=== PATIENT | female | born 1975 | race Caucasian/White ===

== ENCOUNTER 2016-07-17 07:00 | Inpatient (IN) | payer OTHER ==
[~2016-07-17 07:00] MED LIST: DEXTROSE 5%-LACTATED RINGERS 1,000 ML IV SCH
[2016-07-17 08:14] VITALS: BMI 28.7
[2016-07-17 08:53] LABS: BASOPHIL 0.9 % (0-2.0); EOSINOPHIL 2.1 % (0-4.5); MCH 31.9 pg (25.7-33.7); MEAN CELL VOLUME 93.6 fl (80-96); MEAN PLT VOLUME 8.5 fl (7.5-11.1); PLATELET COUNT 221 K/MM3 (134-434); WHITE BLOOD COUNT 7.3 K/mm3 (4.0-10.0)
[2016-07-17 09:16] LABS: CALCIUM 8.9 mg/dL (8.5-10.1); CREATININE 0.9 mg/dL (0.55-1.02)
[2016-07-17 09:23] LABS: INR 0.95 (0.82-1.09); PROTHROMBIN TIME (PATIENT) 10.4 SEC (9.98-11.88)
[2016-07-17 09:26] LABS: ACTIVATED PTT 28.6 SECONDS (26.9-34.4)
[2016-07-17] MEDS ORDERED: AMPICILLIN - 2 GM in SODIUM CHLORIDE 100 ML IVPB ONE (09:42)
[2016-07-17] MEDS ORDERED: AMPICILLIN - 1 GM in SODIUM CHLORIDE 100 ML IVPB SCH (09:45)
[2016-07-17] MEDS ORDERED: DEXTROSE 5%-LACTATED RINGERS 1,000 ML IV SCH (09:45)
[2016-07-17] MEDS ORDERED: OXYTOCIN 15 UNITS/ LR 250 ML 250 ML IVPB SCH (09:45)
--- NOTE | 2016-07-17 09:50 | HP ---
Past Medical History - Primary Care Physician PCP:: Ambrosio Baez - Admission Chief Complaint: 41 yo P2 with at EGA 40w 2d admitted for labor induction. Patient is noted to be ninoska on admission. History of Present Illness: complicated by AMA, prior h/o labor. 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: No: Alzheimer's, CVA, Dementia, Migraine, Multiple Sclerosis, Peripheral Neuropathy, Parkinson's, Seizure, Syncope, TIA, Vertigo, Other Cardiovascular: No: AFIB, Aneurysm, Aortic Insufficiency, Aortic Stenosis, CAD, CHF, Deep Vein Thrombosis, HTN, Hyperlipdemia, [place], Mitral Insufficiency, Mitral Stenosis, Murmur, Pulmonary Hypertension, Other Pulmonary: No: Asthma, Bronchitis, Cancer, COPD, O2 Dependent, Pneumonia, Previously Intubated, Pulmonary Embolus, Pulmonary Fibrosis, Sleep Apnea, Other Gastrointestinal: No: Ascites, Cancer, Constipation, Crohn's Disease, Diverticulitis, Diverticulosis, Esophageal Varices, Gastritis, GERD, GI Bleed, Hemorrhoids, Hiatal Hernia, Inflamatory Bowel Disease, Irritable Bowel Disease, Pancreatitis, Peptic Ulcer Disease, Ulcerative Colitis, Other Hepatobiliary: No: Cirrhosis, Cholelithiasis, Cholecystitis, Choledocholithiasis , Hepatitis A, Hepatitis B, Hepatitis C, Other Renal/: No: Renal Failure, Renal Inusuff, BPH, Cancer, Hematuria, Hemodialysis , Neurogenic Bladder, Renal Calculi, UTI, Other Reproductive: No: Ectopic , Endometriosis, Fibroids, PID, Polycystic Ovary Syndrome, Postmenopausal, Other ...: 5 ...Para: 2 ...Term: 0 ...: 2 ...Spon : 1 ...Induced : 1 ...Multiple Gestation: 0 ...LMP: 10/01/15 ... Weeks Gestation by Dates: 41.3 ...EDC by Dates: 07/07/16 ...EDC by Sono: 07/15/16 Heme/Onc: No: Anemia, B12 Deficiency, Bleeding Disorder, Cancer, Current Chemotherapy, Current Radiation Therapy, Hemochromatosis, Hypercoaguable State, Myeloproliferative Synd, Sickle Cell Disease, Sickle Cell Trait, Thrombocytopenia, Other Infectious Disease: No: AIDS, C-Diff, Herpes Zoster, HIV, MRSA, STD's, Tuberculosis, VREF, Other Psych: No: Addictions, Anxiety, Bipolar, Depression, Panic, Psychosis, Schizophrenia, Other Musculoskeletal: No: Bursitis, Chronic low back pain, Hemiparesis, Hemiplegia, Osteoarthritis, Paraplegia, Other Rheumatology: No: Fibromyalgia, Gout, Lupus, Rheumatoid Arthritis, Sarcoidosis, Vasculitis, Other ENT: No: Allergic Rhinitis, Sinusitis, Other Endocrine: No: Lehigh's Disease, Frandy's Disease, Diabetes Insipidus, Diabetes Mellitus, Hyperparathyroidism, Hyperthyroidism, Hypothyroidism, Osteopenia, SIADH, Other Dermatology: No: Basal Cell, Cellulitis, Eczema, Melanoma, Psoriasis, Squamous Cell, Other - Past Surgical History Past Surgical History: Yes: None Hx Myomectomy: No Hx Transabdominal Cerclage: No - Smoking History Smoking history: Never smoked Have you smoked in the past 12 months: No - Alcohol/Substance Use Hx Alcohol Use: No History of Substance Use: reports: None - Social History Usual Living Arrangement: Yes: With Significant Other, With Child ADL: Independent 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 - Review of Systems Constitutional: reports: No Symptoms Eyes: reports: No Symptoms HENT: reports: No Symptoms Neck: reports: No Symptoms Cardiovascular: reports: No Symptoms Respiratory: reports: No Symptoms Gastrointestinal: reports: No Symptoms Genitourinary: reports: No Symptoms Breasts: reports: No Symptoms Reported Musculoskeletal: reports: No Symptoms Integumentary: reports: No Symptoms Neurological: reports: No Symptoms Endocrine: reports: No Symptoms Hematology/Lymphatic: reports: No Symptoms Psychiatric: reports: No Symptoms Pain Intensity: 3 Physical Exam - Maternity Vital Signs: Vital Signs Temperature 97.8 F 07/17/16 08:00 Pulse Rate 83 07/17/16 08:00 Respiratory Rate 18 07/17/16 09:00 Blood Pressure 105/71 07/17/16 09:00 O2 Sat by Pulse Oximetry (%) Constitutional: Yes: Well Nourished, No Distress, Calm Eyes: Yes: WNL, Conjunctiva Clear HENT: Yes: WNL, Atraumatic, Normocephalic Neck: Yes: WNL, Supple, Trachea Midline Cardiovascular: Yes: WNL, Regular Rate and Rhythm Lungs: Clear to auscultation, Normal air movement - Abdominal Exam/OB Fundal Height: 40 Number of Fetuses: Single Presentation: Vertex Contractions: Yes Regularity: Irregular (q2-4min) Intensity: Mild (most ctx's are not fetl by the patient) Monitor Mode: External Heart Rate (range): 125 Heart Rate Location: Midline Category: I Accelerations: Non-Uniform Decelerations: None - Vaginal Exam/OB Vaginal Bleediing: No Speculum Exam: No Dilatation (cm): 2 Effacement (%): 50 Amniotic Membrane Status: Intact Presentation: Vertex/Position Station: -4 (Adequate gynecoid pelvimetry) - Physical Exam Musculoskeletal: Yes: WNL Extremities: Yes: WNL Edema: Yes Edema: LLE: Trace, RLE: Trace Integumentary: Yes: WNL Deep Tendon Reflex Grade: Normal +2 ...Motor Strength: WNL Psychiatric: Yes: WNL, Alert, Oriented - Labs Lab Results: CBC, BMP 07/17/16 08:25 07/17/16 08:25 Hemorrhage Risk Assessment - Risk Factors Medium Risk Factors: Yes: None High Risk Factors: Yes: None Risk Score: 1 Risk Level: Medium Risk Imaging - Results Ultrasound: Report Reviewed Assessment/Plan 41 yo P2 with at EGA 40w 2d admitted for labor induction. Patient is noted to be ninoska on admission but the contractions are irregular and ot strong. The cervical examination is the same as it was in-office 1 week ago. FHT is category I. Fetus requires no intervention. Mother is stable and well. Cervical exam is favorable. We had a long discussion about management options and risks/benefits. The patient prefers to augment contractions with oxytocin. The risks of infection, bleeding, uterine tachysystole, distress, shoulder dystocia, hemorrhage, etc. were explained. The patient verbalized her understanding and requested to proceed with IV pitocin. Plan to use IV abx for GBS prophylaxis.
[2016-07-17] MEDS ORDERED: TUBERCULIN PPD 5 TU/0.1ML SYRINGE (IN PATIENT USE ONLY) ID ONE (10:00)
[2016-07-17 11:08] LABS: HIV 1 & 2 AB NEGATIVE; HIV 1 AGp24 NEGATIVE
[2016-07-17] MEDS ORDERED: PROMETHAZINE HCL 25 MG/1 ML VIAL IVPB ONE (12:00)
[2016-07-17] MEDS ORDERED: BUTORPHANOL TARTRATE 1 MG/ML VIAL IVPB ONE (12:00)
[2016-07-17] MEDS ORDERED: ELECTROLYTE-148 SOLN 1,000 ML IV SCH (13:40)
[2016-07-17] MEDS: AMPICILLIN - 100 ML IVPB SCH ×2 (13:58→18:21)
--- NOTE | 2016-07-17 15:10 | PN ---
Ante-Partal Exam - Subjective Subjective: C/o painful contractions, s/p Stadol/Phenergan. Pt requested epidural. Ptocin at 1mU/min Vital Signs: Vital Signs Temperature 97.6 F 07/17/16 14:00 Pulse Rate 63 07/17/16 13:17 Respiratory Rate 18 07/17/16 13:17 Blood Pressure 121/81 07/17/16 13:17 O2 Sat by Pulse Oximetry (%) Bleeding: No Headache: No Visual changes: No Right upper quadrant pain: No Pain (scale 1-10): 9 - Contractions Contractions: Yes (q4-5min) Regularity: Regular Intensity: Moderate Monitor Mode: External - Exam during Labor Heart Rate: 125 Variability: Moderate Heart Rate Location: Midline Monitor Accelerations: Present Monitor Decelerations: None - Intrapartum Hemorrhage Risk Medium Risk Factors: None Risk Score: 0 Risk Level: Low Risk - Assessment/Plan Assessment/Plan: 41 yp P2 with post term . Patient is now with latent labor. Fetus has Category I tracing. Anesthesia at bedside for epidural.
[2016-07-17] MEDS ORDERED: FENTANYL/BUPIVACAINE/NS/PF - PCEA - 50 ML DISP.SYRIN EP SCH (15:45)
[2016-07-17 19:47] LABS: ARTERIAL BLD GAS O2 SATURATION 21.9 % (90-98.9); ARTERIAL BLOOD GAS BASE EXCESS -8.1 meq/l (-2-2); ARTERIAL BLOOD GAS HCO3 21.4 meq/L (22-26); ARTERIAL BLOOD GAS PO2 16.6 mmHg (80-100)
[2016-07-17 19:48] LABS: LPM/O2% ARTERIAL SAMPLE; PT. ON O2? CORD BLOOD SAMPLE
[2016-07-17 19:51] LABS: ARTERIAL BLD GAS O2 SATURATION 51.8 % (90-98.9); ARTERIAL BLOOD GAS BASE EXCESS -7.3 meq/l (-2-2); ARTERIAL BLOOD GAS HCO3 19.2 meq/L (22-26); ARTERIAL BLOOD GAS PO2 26.3 mmHg (80-100)
[2016-07-17 19:52] LABS: ARTERIAL BLOOD GAS pH 7.19 (7.35-7.45)
[2016-07-17 19:53] LABS: PT. ON O2? CORD BLOOD
[2016-07-17 19:54] LABS: ARTERIAL BLOOD GAS pH 7.27 (7.35-7.45); LPM/O2% VENOUS SAMPLE
[2016-07-17] MEDS ORDERED: METHYLERGONOVINE MALEATE 0.2 MG/1 ML AMP IM PRN (21:16)
[2016-07-17] MEDS ORDERED: ACETAMINOPHEN 325 MG TABLET (FP) PO PRN (21:16)
[2016-07-17] MEDS ORDERED: WITCH HAZEL 50% (TUCKS) 40 PAD/JAR PAD TP PRN (21:16)
[2016-07-17] MEDS ORDERED: BISACODYL 10 MG SUPP.RECT RC PRN (21:16)
[2016-07-17] MEDS ORDERED: BENZOCAINE 28 GM HEMORRHOIDAL OINTMENT TP PRN (21:16)
[2016-07-17] MEDS ORDERED: BENZOCAINE 20% 57 GM BOTTLE TP PRN (21:16)
--- NOTE | 2016-07-17 21:19 | PN ---
Delivery - Delivery Vaginal Delivery: No Problems, Spontaneous Type of Anesthesia: Epidural Episiotomy/Laceration: Perineal Extension/lac, 1st degree EBL (cc): 300 Delivery, Single - Stages of Labor Date 1st Stage Initiatied: 07/17/16 Time 1st Stage Initiated: 11:00 Date 2nd Stage Initiated: 07/17/16 Time 2nd Stage Initiated: 18:55 Date of Delivery: 07/17/16 Time of Delivery: 19:27 Date Placenta Delivered: 07/17/16 Time Placenta Delivered: 19:30 Placenta: Yes: Spontaneous, Normal Configuration - Condition of Law Writer/Body And Frame Man Present: Yes Name: Kate Pike Gender: Male Weight: 3.515 kg Position: Left, OA Total Hours ROM (Hrs/Mins): 1h15m - 1 Minute Total Score: 9 5 Minutes Total Score: 9 - Feeding Plan Initial Plan: Elected not to breastfeed exclusively throughout hospitalization Remarks - Remarks Remarks: Normal labor and delivery
[2016-07-17] MEDS ORDERED: D5W-LR W/ 20 UNITS OXYTOCIN 1,000 ML IV SCH (21:30)
[2016-07-18] MEDS: IBUPROFEN 600 MG TABLET (FP) PO PRN ×2 (03:35→17:05)
[2016-07-18 08:23] LABS: BASOPHIL 0.5 % (0-2.0); EOSINOPHIL 1.4 % (0-4.5); MCHC 33.8 g/dl (32.0-36.0); MEAN CELL VOLUME 94.5 fl (80-96); MEAN PLT VOLUME 8.6 fl (7.5-11.1); NEUTROPHILS 74.1 % (42.8-82.8); PLATELET COUNT 188 K/MM3 (134-434); WHITE BLOOD COUNT 11.2 K/mm3 (4.0-10.0)
[2016-07-18] MEDS: PRENATAL VITAMINS W/ FOLIC ACID TABLET (FP) PO SCH (10:19)
--- NOTE | 2016-07-18 18:49 | PN ---
Post Progress Note - Subjective Subjective: No complaints Post Day: 2 Type of Delivery: Vital Signs: Vital Signs Temperature 98.3 F 07/18/16 09:00 Pulse Rate 75 07/18/16 09:00 Respiratory Rate 20 07/18/16 09:00 Blood Pressure 103/52 07/18/16 09:00 O2 Sat by Pulse Oximetry (%) 100 07/17/16 19:16 Breast Exam: Yes: Soft Uterus: Yes: Fundus Firm, Fundus below umbilicus Abdomen/GI: Yes: Abdomen soft, Passing flatus, Tolerating PO Lochia: Yes: Rubra Lochia, amount: Small Extremities: Yes: Calves non-tender Perineum: Yes: Intact Activity: Ambulating - Labs Labs: CBC WBC 11.2 K/mm3 (4.0-10.0) H D 07/18/16 07:20 RBC 3.38 M/mm3 (3.60-5.2) L 07/18/16 07:20 Hgb 10.8 GM/dL (10.7-15.3) D 07/18/16 07:20 Hct 31.9 % (32.4-45.2) L 07/18/16 07:20 MCV 94.5 fl (80-96) 07/18/16 07:20 MCHC 33.8 g/dl (32.0-36.0) 07/18/16 07:20 RDW 13.0 % (11.6-15.6) 07/18/16 07:20 Plt Count 188 K/MM3 (134-434) 07/18/16 07:20 MPV 8.6 fl (7.5-11.1) 07/18/16 07:20 Neutrophils % 74.1 % (42.8-82.8) 07/18/16 07:20 Lymphocytes % 19.0 % (8-40) D 07/18/16 07:20 Monocytes % 5.0 % (3.8-10.2) 07/18/16 07:20 Eosinophils % 1.4 % (0-4.5) 07/18/16 07:20 Basophils % 0.5 % (0-2.0) 07/18/16 07:20 Problem List - Problems (1) Normal vaginal delivery Assessment/Plan: 30yo P3 s/p , doing well stable, afebrile. care instructions reviewed. Continue routine care. Ambulation encouraged Discharge instruction reviewed. Code(s): O80 - ENCOUNTER FOR FULL-TERM UNCOMPLICATED DELIVERY
--- NOTE | 2016-07-18 18:52 | DS ---
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: Vital Signs Temperature 98.3 F 07/18/16 09:00 Pulse Rate 75 07/18/16 09:00 Respiratory Rate 20 07/18/16 09:00 Blood Pressure 103/52 07/18/16 09:00 O2 Sat by Pulse Oximetry (%) 100 07/17/16 19:16 Constitutional: Yes: Well Nourished, No Distress, Calm Eyes: Yes: WNL, Conjunctiva Clear, EOM Intact HENT: Yes: WNL, Atraumatic, Normocephalic Neck: Yes: WNL, Supple, Trachea Midline Cardiovascular: Yes: WNL, Regular Rate and Rhythm Respiratory: Yes: WNL, Regular, CTA Bilaterally Gastrointestinal: Yes: WNL, Normal Bowel Sounds, Soft ...Rectal Exam: Yes: Hemorrhoids/External Renal/: Yes: WNL ....Post : Yes: Uterus firm, Uterus non-tender, Slight lochia rubra Breast(s): Yes: WNL Musculoskeletal: Yes: WNL Extremities: Yes: WNL Edema: Yes Edema: LLE: Trace, RLE: Trace Integumentary: Yes: WNL Neurological: Yes: WNL, Alert, Oriented ...Motor Strength: WNL Psychiatric: Yes: WNL, Alert, Oriented Labs: CBC, BMP 07/18/16 07:20 07/17/16 08:25 Delivery - Delivery Vaginal Delivery: No Problems, Spontaneous Type of Anesthesia: Epidural Episiotomy/Laceration: Perineal Extension/lac, 1st degree EBL (cc): 300 Delivery, Single - Stages of Labor Date 1st Stage Initiatied: 07/17/16 Time 1st Stage Initiated: 11:00 Date 2nd Stage Initiated: 07/17/16 Time 2nd Stage Initiated: 18:55 Date of Delivery: 07/17/16 Time of Delivery: 19:27 Time Placenta Delivered: 19:30 Placenta: Yes: Spontaneous, Normal Configuration - Condition of Infant Orthopedic Nurse Practitioner/Internal Grinder Set Up Operator Present: Yes Name: Kate Pike Infant Gender: Male Weight: 3.515 kg Position: Left, OA Total Hours ROM (Hrs/Mins): 1h15m - 1 Minute Total Score: 9 5 Minutes Total Score: 9 - Feeding Plan Initial Plan: Elected not to breastfeed exclusively throughout hospitalization Remarks - Remarks Remarks: Normal labor and delivery 41yo P3 s/p , doing well stable, afebrile. care instructions reviewed. Continue routine care. Ambulation encouraged Discharge instruction reviewed. Discharge Summary Reason For Visit: LABOR Current Active Problems Normal vaginal delivery (Acute) - Home Medications Comprehensive Discharge Medication List: Ambulatory Orders Pnv95/Ferrous Fumarate/FA [ Vitamin Tablet] 1 each PO DAILY 07/17/16 RX: Folic Acid 1 mg PO DAILY 07/17/16
[2016-07-18 21:50] VITALS: TEMP 97.7
[2016-07-18] MEDS ORDERED: SENNOSIDES/DOCUSATE COMBO (SENNA PLUS) TABLET (UD) PO PRN (22:00)
[2016-07-19] MEDS: IBUPROFEN 600 MG TABLET (FP) PO PRN (01:27)
[2016-07-19] MEDS: PRENATAL VITAMINS W/ FOLIC ACID TABLET (FP) PO SCH (09:32)
[2016-07-19 10:41] VITALS: BP 121/74; PULSE 65
== END 2016-07-19 11:08 | disposition home or self-care (01) | DRG 775 ==
LOC: JLDR 07:00 → J3W 21:55
PROVIDERS: ADMIT Obstetrics & Gynecology; ATTEND Obstetrics & Gynecology
PROC: 0HQ9XZZ Repair Perineum Skin, External Approach (ICD-10-PCS; principal; 2016-07-17)
PROC: 10E0XZZ Delivery of Products of Conception, External Approach (ICD-10-PCS; 2016-07-17)
DX: O48.0 Post-term pregnancy (principal); Z3A.41 41 weeks gestation of pregnancy; O09.523 Supervision of elderly multigravida, third trimester; O70.0 First degree perineal laceration during delivery; Z37.0 Single live birth
CPT/HCPCS: 36415; 36600; 59409; 80048; 82803; 85025; 85610; 85730; 86593; 86850; 86900; 86901; 87389